=== PATIENT | male | born 1980 | race Caucasian/White ===

== ENCOUNTER 2019-01-16 20:09 | Emergency (ER) | payer BC ==
[~2019-01-16] VITALS: Ht 185.4 cm; Wt 78.0 kg
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
[2019-01-16] MEDS ORDERED: HYDROcodone/Acetamin 5/325 tab ORAL ONE (21:15)
[2019-01-16] MEDS ORDERED: AUGMENTIN 875-1 EAC1 ORAL (21:40)
[2019-01-16] MEDS ORDERED: IBUPROFEN600 MG ORAL (21:40)
--- NOTE | 2019-01-16 21:44 | NUR ---
ED Nurse Note: Patient provided a sandwich. Patient cleared for discharge by [facility], patient verbalized understanding of discharge and crutch use instructions. Patient departed with all belongings.
--- NOTE | 2019-01-17 13:17 | Diagnostic Imaging Report ---
Indication: Ankle pain and trauma Comparison: None Findings: 3 views of the left ankle obtained. Lateral soft tissue swelling demonstrated. No acute fracture, malalignment, periostitis, or osteochondral defects are identified. Impression: No acute findings. Soft tissue swelling.
== END 2019-01-16 21:55 | disposition home or self-care (01) ==
LOC: EMR 21:50
DX: S93.402A Sprain of unspecified ligament of left ankle, initial encounter (principal); W05.1XXA Fall from non-moving nonmotorized scooter, initial encounter; S01.451A Open bite of right cheek and temporomandibular area, initial encounter; W54.0XXA Bitten by dog, initial encounter; Y92.9 Unspecified place or not applicable
CPT/HCPCS: 99283